=== PATIENT | female | born 1990 | race African-American/Black ===

== ENCOUNTER 2016-05-15 13:51 | Emergency (ER) | payer OTHER ==
[~2016-05-15] VITALS: Ht 157.5 cm; Wt 52.5 kg
[2016-05-15 13:53] VITALS: Ht 157.5 cm; Wt 52.5 kg
[2016-05-15] MEDS ORDERED: NAPR-260 PO (14:35)
[2016-05-15] MEDS ORDERED: CYCL-319 PO (14:35)
--- NOTE | 2016-05-15 14:43 | ERD ---
ER Documentation Chief Complaint Date/Time DATE: 05/15/16 TIME: 14:37 Chief Complaint left shoulder pain/injury started yesterday HPI Is a 25 year old female who presents to the emergency department today complaining of left-sided neck and shoulder pain that started last night. Patient states she was sleeping when the pain started. She states that for 1 week ago and then it went away and then returned last night. She has not taken any medication for the pain. Denies any fevers or chills or trauma. ROS All systems reviewed and are negative except as per history of present illness. Medications Home Meds Active Scripts Cyclobenzaprine Hcl* (Cyclobenzaprine Hcl*) 10 Mg Tablet, 10 MG PO QHS, #7 TAB Prov:JAYJAY SAMUEL PA-C 05/15/16 Naproxen* (Naprosyn*) 500 Mg Tablet, 500 MG PO BID Y for PAIN AND/OR INFLAMMATION, #30 TAB Prov:JAYJAY SAMUEL PA-C 05/15/16 Allergies Allergies: Coded Allergies: No Known Allergy (Unverified , 04/16/13) PMhx/Soc Medical and Surgical Hx: pt denies Medical Hx, pt denies Surgical Hx Hx Alcohol Use: No Hx Substance Use: No Hx Tobacco Use: No Physical Exam Vitals Vital Signs Date Time Temp Pulse Resp B/P Pulse Ox O2 Delivery O2 Flow Rate FiO2 05/15/16 13:53 98.2 72 19 115/75 100 Physical Exam Const: No acute distress Head: Atraumatic Eyes: Normal Conjunctiva ENT: Normal External Ears, Nose and Mouth. Neck: Decreased range of motion flexion secondary to pain.~ No meningismus. Full active range of motion extension. No midline tenderness. Left- sided paraspinal tenderness. Pulses 2+. Distal neurovascularly intact Resp: Clear to auscultation bilaterally Cardio: Regular rate and rhythm, no murmurs Abd: Soft, non tender, non distended. Normal bowel sounds Skin: No petechiae or rashes Back: No midline or flank tenderness MSK: Deforming. No effusion. No ecchymosis. No erythema or warmth. Left shoulder with range of motion 0-90. Pain past 90 of flexion. Tenderness to palpation medial border of the scapula up into trapezius muscle. Pulses 2+. Distal neurovascularly intact. Neur: Awake and alert Psych: Normal Mood and Affect Procedures/MDM This is a 25-year-old female who presents to the emergency department today complaining of left-sided neck pain and left-sided scapular pain. On physical exam patient does have limited range of motion secondary to pain and muscle spasm. Patient has had no trauma and there is no erythema or warmth. I do not feel the patient requires imaging at this time. I have low suspicion for acute fracture or dislocation. Patient has no midline tenderness on her neck. I have low suspicion for meningitis. Patient's range of motion in her shoulder is limited past 90 however her pain appears to be along the medial border of the scapula and appears to be musculoskeletal at this time. Low suspicion for septic joint or gout. Low suspicion for acute fracture or dislocation. Patients symptoms at this time consistent with musculoskeletal strain versus sprain versus muscle spasm. Patient will be given a prescription for Naprosyn and Flexeril to take at night. She was instructed in the exam room and stretching exercises as well as to apply ice and heat intermittently. At this time the patient is stable for discharge and outpatient management. Patient should follow up with their PCP in the next 1-2 days. They may return to the emergency department sooner for any persistent or worsening of symptoms. Patient understood and agreed with the plan. Departure Diagnosis: Primary Impression: Muscle spasm Condition: Fair Patient Instructions: Muscle Spasm, Neck Sprain/Strain Referrals: your PCP [facility] YOU HAVE RECEIVED A MEDICAL SCREENING EXAM AND THE RESULTS INDICATE THAT YOU DO NOT HAVE A CONDITION THAT REQUIRES URGENT TREATMENT IN THE EMERGENCY DEPARTMENT. FURTHER EVALUATION AND TREATMENT OF YOUR CONDITION CAN WAIT UNTIL YOU ARE SEEN IN YOUR DOCTORS OFFICE WITHIN THE NEXT 1-2 DAYS. IT IS YOUR RESPONSIBILITY TO MAKE AN APPOINTMENT FOR [facility]. IF YOU HAVE A PRIMARY DOCTOR --you should call your primary doctor and schedule an appointment IF YOU DO NOT HAVE A PRIMARY DOCTOR YOU CAN CALL OUR PHYSICIAN REFERRAL HOTLINE AT IF YOU CAN NOT AFFORD TO SEE A PHYSICIAN YOU CAN CHOSE FROM THE FOLLOWING [facility] [address] [facility] [place] [address] [facility]. [facility] [address] [facility] [address] [facility] [address] [facility] [facility] [address] Additional Instructions: Call your primary care doctor TOMORROW for an appointment during the next 1-2 days.See the doctor sooner or return here if your condition worsens before your appointment time. Medications only as needed Apply ice and heat intermittently Do stretching exercises JAYJAY SAMUEL PA-C May 15, 2016 14:43
== END 2016-05-15 15:49 | disposition home or self-care (01) ==
LOC: FTE 13:51
DX: M62.838 Other muscle spasm (principal)
CPT/HCPCS: 99283